=== PATIENT | male | born 1965 | race African-American/Black ===

== ENCOUNTER 2017-06-28 06:11 | Inpatient (IN) | payer BC ==
[~2017-06-28] VITALS: Ht 177.8 cm; Wt 97.5 kg
[2017-06-28] VITALS (17 sets, daily range): BP systolic 110–168; BP diastolic 58–106
[2017-06-28] MEDS ORDERED: LISINOPRIL20 MG ORAL (06:50)
[2017-06-28] MEDS ORDERED: Bupivacaine w/Epi 0.25% 30ml Vial INJ ONE ×2 (06:57→08:56)
[2017-06-28] MEDS ORDERED: Dexamethasone 4mg/ml vial ONE ×2 (06:57→07:00)
[2017-06-28] MEDS ORDERED: Bacitracin 50000 Units Vial ONE ×2 (06:58→07:01)
[2017-06-28] MEDS ORDERED: Ketorolac 30mg Inj ONE ×2 (06:58→11:28)
[2017-06-28] MEDS ORDERED: Lidocaine 1% MPF 10mg/ml 5ml ONE (07:00)
[2017-06-28] MEDS ORDERED: Glycopyrrolate 0.2mg/ml 1ml Vial ONE (07:00)
[2017-06-28] MEDS ORDERED: fentaNYL 100 mcg/2 mL IV ONE (07:00)
[2017-06-28] MEDS ORDERED: NS Irrig 1000ml ONE (07:00)
[2017-06-28] MEDS ORDERED: Neostigmine 1mg/ml 10ml Inj ONE (07:00)
[2017-06-28] MEDS ORDERED: LR 1000ml ONE (07:00)
[2017-06-28] MEDS ORDERED: Zemuron 50mg/5ml Inj IV ONE (07:00)
[2017-06-28] MEDS ORDERED: Propofol 10mg/ml 100ml btl IV ONE (07:00)
[2017-06-28] MEDS ORDERED: Sodium Chloride 10ml vial INJ ONE (07:00)
[2017-06-28] MEDS ORDERED: Metoclopramide 10mg/2ml Inj ONE (07:00)
[2017-06-28] MEDS ORDERED: Midazolam 2mg/2ml Inj ONE (07:00)
[2017-06-28] MEDS ORDERED: Propofol 10mg/ml 20ml IV ONE (07:00)
[2017-06-28] MEDS ORDERED: Sterile Water Irrig 1000ml IRRIG ONE (07:00)
[2017-06-28] MEDS ORDERED: NS Irrig 1000ml IRRIG ONE (07:01)
--- NOTE | 2017-06-28 07:03 | Pre-Procedure Note/Attestation ---
Pre-Procedure Note/Attestation Complete Prior to Procedure Planned Procedure: left Procedure Narrative: Left knee arthroplasty Indications for Procedure Pre-Operative Diagnosis: Left knee arthritis Attestation I attest that I discussed the nature of the procedure; its benefits; risks and complications; and alternatives (and the risks and benefits of such alternatives ), prior to the procedure, with the patient (or the patient's legal u.s. representative). I attest that, if there was a reasonable possibility of needing a blood transfusion, the patient (or the patient's legal u.s. representative) was given the [facility] standardized written summary, pursuant to the Ozzy Kyara Blood Safety Act ([place] Health and Safety Code # 1645, as amended). I attest that I re-evaluated the patient just prior to the surgery and that there has been no change in the patient's H&P, except as documented below: LUIS TURNER Jun 28, 2017 07:02
--- NOTE | 2017-06-28 07:10 | Brief Operative Note ---
Immediate Post Operative Note Operative Note Pre-op Diagnosis: Left knee arthritis Procedure: Left knee arthroplasty Post-op Diagnosis: same as pre-op Findings: consistent w/pre-op dx studies Surgeon: Khris Anesthesia: general, regional, local Specimen: yes Complications: none Condition: stable Fluids: Per anesthesia Estimated Blood Loss: minimal Drains: none Implant(s) used?: Yes LUIS TURNER Jun 28, 2017 07:10
[2017-06-28] MEDS ORDERED: Morphine Sulfate PF 10 ML ONE (07:12)
[2017-06-28] MEDS ORDERED: Tranexamic Acid 1,000 MG in NS 55 ML IV ONE (07:15)
[2017-06-28] MEDS ORDERED: Tranexamic Acid 1,000 MG in NS 55 ML IVPB ONE (07:15)
[2017-06-28] MEDS ORDERED: Norco 7.5mg/325mg tab ORAL PRN (07:15)
[2017-06-28] MEDS ORDERED: Milk of Magnesia 30ml Ud ORAL PRN (07:15)
[2017-06-28] MEDS ORDERED: SIMVASTATIN10 MG ORAL (07:17)
[2017-06-28] MEDS ORDERED: METOPROLOL SUCC50 MG ORAL (07:17)
[2017-06-28] MEDS ORDERED: XARELTO15 MG ORAL (07:17)
[2017-06-28] MEDS ORDERED: WARFARIN SODIUM1 MG ORAL (07:17)
[2017-06-28] MEDS ORDERED: Ropivacaine 5mg/ml Vial 20ml INJ ONE (08:54)
[2017-06-28] MEDS ORDERED: Albuterol 90mcg Inhaler 8gm INH ONE (09:40)
--- NOTE | 2017-06-28 10:05 | Diagnostic Imaging Report ---
Indication: Intraoperative Technique: 2 views of the left knee Comparison: None Findings:Intraoperative images demonstrate partial implantation of a knee prosthesis. Good anatomic alignment Impression:Intraoperative imaging, as described
[2017-06-28] MEDS ORDERED: Norco 5mg/325mg tab ORAL PRN (11:00)
[2017-06-28] MEDS ORDERED: Metoclopramide 10mg/2ml Inj IVP PRN ×2 (11:00)
[2017-06-28] MEDS ORDERED: Meperidine 25mg/0.5ml Inj (FOR RIGORS ONLY) IV PRN (11:00)
[2017-06-28] MEDS ORDERED: Hydromorphone 0.5mg/0.5ml inj IVP PRN (11:00)
--- NOTE | 2017-06-28 11:13 | Immediate Post-Op Evaluation ---
Immediate Post-Op Evalulation Immediate Post-Op Evalulation Procedure: left knee replacement Date of Evaluation: Jun 28, 2017 Time of Evaluation: 10:30 IV Fluids: 500 Blood Products: 0 Estimated Blood Loss: 10 Blood Pressure Systolic: 130 Blood Pressure Diastolic: 70 Pulse Rate: 100 Respiratory Rate: 12 O2 Sat by Pulse Oximetry: 100 Temperature (Fahrenheit): 98.0 Nausea: No Vomiting: No Complications none Patient Status: awake, reacts Hydration Status: adequate Drug: ancef Given Within 1 Hr of Incision: Yes Time Given: 07:50 MISSAEL RAMOS CRNA Jun 28, 2017 11:13
--- NOTE | 2017-06-28 11:19 | Anethesia Preoperative Eval ---
Anesthesia Pre-op PMH/ROS General Date of Evaluation: Jun 28, 2017 Time of Evaluation: 07:33 Anesthesiologist: isis ASA Score: ASA 3 Mallampati Score Class I : Soft palate, uvula, fauces, pillars visible Class II: Soft palate, uvula, fauces visible Class III: Soft palate, base of uvula visible Class IV: Only hard plate visible Mallampati Classification: Class III Surgeon: aida Diagnosis: OA Surgical Procedure: LEFT Knee Athroplasty Anesthesia History: none Social History: current smoker Family History: no anesthesia problems Allergies: Coded Allergies: No Known Allergies (Unverified , 06/28/17) Medications: see eMAR Past Medical History Cardiovascular: Reports: HTN, other - PFO Pulmonary: Reports: NICHOLAS, other - smoker Gastrointestinal/Genitourinary: Denies: GERD, CRI, ESRD, other Neurologic/Psychiatric: Reports: CVA - on blood thinner/ inr 1.6 on 06/26, depression/anxiety HEENT: Denies: cataract (L), cataract (R), glaucoma, [place]ANDY (L), [place]Y (R), other Hematology/Immune: Denies: anemia, DVT, bleeding disorder, other Musculoskeletal/Integumentary: Reports: OA Other: obesity PMH Narrative: pt with HTN ; CVA in 2013 on xeralto and coumadin bridging PSxH Narrative: multiple knee surgeries Anesthesia Pre-op Phys. Exam Physician Exam Last Vital Signs Date Time Temp Pulse Resp B/P (MAP) Pulse Ox O2 Delivery O2 Flow Rate FiO2 06/28/17 10:45 109 18 135/84 92 Simple Mask 10.0 06/28/17 10:20 98.9 Constitutional: NAD Neurologic: CN 2-12 intact Cardiovascular: RRR Respiratory: CTA Gastrointestinal: S/NT/ND Airway Exam Mallampati Classification 3 Mallampati Score: Class III MO: full Neck: thick TMD: 2fb Dentures: no upper, no lower Anesthesia Pre-op A/P Labs INR 1.6 on 06/26 ; other labs wnl Studies Pre-op Studies: EKG - sr Risk Assessment & Plan Assessment: denies cp/sob Plan: general / Will perform one short peripheral nerve block if anatomy can be id'd with u/s Status Change Before Surgery: No Pre-Antibiotics Drug: ancef Given Within 1 Hr of Incision: Yes Time Given: 07:50 MISSAEL RAMOS CRNA Jun 28, 2017 11:18
[2017-06-28] MEDS ORDERED: Ketorolac 30mg Inj IV PRN (11:30)
--- NOTE | 2017-06-28 11:36 | Diagnostic Imaging Report ---
Indication: POST-OP Technique: 2 views of the right knee Comparison: 2 hours earlier Findings: Interim completion of placement of left knee arthroplasty prosthesis. Satisfactory anatomic alignment. Is evidence of prior anterior cruciate ligament repair, with surgical hardware from that in place. Retained air from the surgical wound is seen within the soft tissues and joint. Impression: Postoperative left knee no unusual features
--- NOTE | 2017-06-28 11:37 | 48 Hour Post Anesthesia Eval ---
Post Anesthesia Evaluation Procedure: left knee replacement Date of Evaluation: Jun 28, 2017 Time of Evaluation: 11:37 Blood Pressure Systolic: 135 0: 70 Pulse Rate: 100 Respiratory Rate: 14 O2 Sat by Pulse Oximetry: 95 Airway: patent Nausea: No Vomiting: No Hydration Status: adequate Cardiopulmonary Status: stable Mental Status/LOC: patient returned to baseline Post-Anesthesia Complications: none Follow-up care needed: N/A MISSAEL RAMOS CRNA Jun 28, 2017 11:37
[2017-06-28] MEDS ORDERED: DiphenhydrAMINE 50mg/ml Inj IVP PRN (11:45)
[2017-06-28] MEDS ORDERED: Morphine Sulfate 4mg/ml Inj IVP PRN (13:22)
[2017-06-28] MEDS ORDERED: HYDROmorphone 1mg/ml Carpuject SUBQ PRN (13:22)
[2017-06-28] MEDS ORDERED: Morphine Sulfate 2mg/ml Inj IVP PRN (13:23)
[2017-06-28] MEDS ORDERED: oxyCODONE 5mg IR tab ORAL PRN (13:25)
[2017-06-28] MEDS: D5 1/2NS w/KCl 20mEq 1,000 ML IV SCH (13:43)
[2017-06-28 14:30] LABS: INR 1.1 (0.9-1.1)
--- NOTE | 2017-06-28 15:13 | Consultation ---
Consult Note Assessment/Plan dict s/p L TKA OA s/p CVA PFO resume coumadin SAL PERALTA Jun 28, 2017 15:13
[2017-06-28] MEDS: ceFAZolin 2gm/50ml Premix 50 ML IV SCH (15:40)
[2017-06-28] MEDS ORDERED: ceFAZolin sod 2 GM in D5W 110 ML IV SCH (16:00)
[2017-06-28] MEDS ORDERED: Warfarin Sodium 5mg ORAL SCH (17:00)
[2017-06-28] MEDS: Docusate 100mg cap ORAL SCH (17:17)
[2017-06-28] MEDS: oxyCONTIN 20mg tab ORAL SCH (20:17)
[2017-06-29] MEDS: ceFAZolin 2gm/50ml Premix 50 ML IV SCH
--- NOTE | 2017-06-29 00:31 | Consultation ---
DATE OF CONSULTATION: 06/28/2017 INTERNAL MEDICINE CONSULTATION CONSULTING PHYSICIAN: Tony Mccurdy M.D. HISTORY OF PRESENT ILLNESS: The patient is a 51-year-old man, who came today for elective left knee replacement for osteoarthritis. He had several prior knee arthroscopic procedures, which were not successful. He had surgery today that was uneventful and I was asked to see him for medical management following surgery. PAST MEDICAL HISTORY: The patient has a history of left ventricular thrombus and patent foramen ovale and stroke in October 2013. He had transient loss of vision, but this has improved, but no other neurologic signs. He has been on anticoagulants since that time with no recurrence. He has a history of hypertension, right ankle surgery and several left knee operations. He has hyperlipidemia. MEDICATIONS: Xarelto, lisinopril, metoprolol, Zocor, and Tylenol. He has been off the anticoagulants for surgery. ALLERGIES: None. SOCIAL HISTORY: He does not drink excessively. He smoked up until this admission. 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 REVIEW OF SYSTEMS: Otherwise unremarkable. PHYSICAL EXAMINATION: GENERAL: The patient is alert and responds appropriately. He is overweight. VITAL SIGNS: Show blood pressure is 113/74, but was as high as 168/106 earlier. He is not in pain. The other vital signs are normal. The heart rate is somewhat elevated. SKIN: Warm and dry. HEENT: The head is normocephalic. NECK: No jugular venous distention. CHEST: Clear. CARDIAC: Rhythm is regular. Regular tachycardia. ABDOMEN: Soft and nontender. EXTREMITIES: No clubbing, cyanosis, or edema. The left knee has a surgical dressing in place. IMPRESSION: 1. Status post left knee replacement for osteoarthritis. 2. History of left ventricular thrombus and stroke, presently off anticoagulants. 3. Hypertension. 4. Hyperlipidemia. PLAN: The patient will be followed following surgery. He has been restarted on Coumadin. I will be happy to continue to assist in his perioperative management. Tony Mccurdy M.D. DR: Don JOB#: [id number] CC: Jatin Pinedo M.D. ([facility] [place]); Fax#: [phone] Soffer, M.D. ; Fax#: [phone]
[2017-06-29 00:52] VITALS: BP 114/81
--- NOTE | 2017-06-29 01:15 | Operative Note - Dictated ---
DATE OF OPERATION: 06/28/2017 SURGEON: Jatin Pinedo M.D. BUNDLE TIER AND LABELER: None. ANESTHESIA: General plus local plus regional. COMPLICATIONS: None. ANTIBIOTICS: Ancef. PREOPERATIVE DIAGNOSIS: Left knee arthritis. POSTOPERATIVE DIAGNOSIS: Left knee arthritis. PROCEDURE PERFORMED: Left total knee arthroplasty using Rory persona cemented cruciate retaining size 10 femur, Rory persona cemented natural tibia 5-degree stemmed size G, cemented 32 x 8.5 mm all-polyethylene patella, and a 13 mm ultracongruent persona articular fixed bearing surface. 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 All risks, benefits, and alternatives of surgical intervention were discussed in great detail. Risks included, but were not limited to, bleeding, infection, neurovascular injury, need for additional surgical intervention, failure of pain relief, arthrofibrosis, complications of anesthesia, blood clots, stroke, heart attack, and potentially . He understood these risks, amongst others, and consent was signed. PROCEDURE IN DETAIL: The patient was brought into the operating room and placed supine on the operating room table. The left knee was correctly verified for surgical site and prepped and draped in standard sterile fashion. A midline incision was created utilizing a previous anterior cruciate ligament reconstruction scar anteriorly. An Esmarch bandage was used to exsanguinate the limb prior to incision and the tourniquet was insufflated to 275 mmHg above the atmospheric pressure for a period of 95 minutes. The medial parapatellar arthrotomy was performed and the infrapatellar and suprapatellar fat pads were resected. The remnant menisci were removed. There was prolapsed [id number] arthritis medially and in the patellofemoral articulation. An intramedullary guide was used in the femur to cut a 5-degree distal valgus osteotomy. It measured to a size 10 to avoid notching and all five bone cuts were created in the femur. Attention was then turned to the tibia. Using extramedullary guidance and preoperative templating, the proximal tibia was resected of bone. After appropriate soft tissue balancing and osteophyte resection, both flexion and extension gaps were symmetric. The patella was everted and resected of 8.5 mm bone and measured to a size 32. The appropriate lug holes were created to accept the implant. Trial reduction using a 32 patella, G tibia, 10 femur, and 13 mm insert revealed extension to 0 degrees, no mediolateral laxity, neutral alignment, excellent patellar thumbs off tracking, and flexion to 150 degrees. Drill holes were created in the femur to accept the real implant. Punctate holes were created in the sclerotic medial aspect of the tibial plateau to accept the interdigitation of the cement. Pulsatile lavage was used to cleanse all the bone ends and they were then thoroughly dried. The real components were cemented into position. There was no change in final range of motion, stability, patellar tracking, or alignment. The surrounding tissues were copiously irrigated and injected with 40 mL of 0.25% Marcaine with epinephrine mixed with Toradol and Decadron. Finger sweep revealed no retained foreign body or debris. Pulsatile lavage was used throughout the wound and the extensor mechanism was reapproximated using #1 Vicryl and more superficial tissues with #0 and 2-0 Vicryl. Prior to implantation, radiographs confirmed appropriate bone resection and hardware placement. Monocryl was used in a subcuticular fashion for skin closure. Steri-Strips were used over Mastisol. Dry sterile dressing was applied. A compressive stocking was fitted. There were no complications. I attest that I performed the entire operation. He was then transferred to recovery in good condition. Jatin Pinedo M.D. DR: Ammon JOB#: [id number] CC:
[2017-06-29] MEDS: D5 1/2NS w/KCl 20mEq 1,000 ML IV SCH (02:54)
[2017-06-29 04:47] VITALS: BP 107/77
--- NOTE | 2017-06-29 06:55 | Orthopedic Progress Note ---
Orthopedic - Progress Note Subjective Symptoms: c/o post-op knee pain Additional Comments Was somewhat frustrated by adapting to taking hospital medications, when he was told to bring his own. Only mild left knee pain. Using immobilizer for ambulating Objective Vital Signs Last 24 Hour Vital Signs Date Time Temp Pulse Resp B/P (MAP) Pulse Ox O2 Delivery O2 Flow Rate FiO2 06/29/17 04:47 97.6 117 20 107/77 92 Room Air 06/29/17 00:52 97.4 116 20 114/81 97 Room Air 06/28/17 20:19 98.6 114 20 119/81 93 Room Air 06/28/17 16:50 97.6 108 21 110/70 92 Nasal Cannula 2.0 06/28/17 16:01 98.7 110 20 120/85 97 Nasal Cannula 2.0 06/28/17 14:21 98.6 06/28/17 13:43 98.6 120 20 113/74 94 Nasal Cannula 2.0 06/28/17 12:45 99.1 116 16 147/88 93 Nasal Cannula 3.0 06/28/17 12:30 131 24 168/106 93 Nasal Cannula 3.0 06/28/17 12:20 122 20 158/87 93 Nasal Cannula 3.0 06/28/17 12:11 98.0 114 18 142/78 94 Nasal Cannula 3.0 06/28/17 11:56 98.0 06/28/17 11:56 98.0 06/28/17 11:55 114 18 148/80 94 Nasal Cannula 3.0 06/28/17 11:49 114 18 146/78 94 Nasal Cannula 3.0 06/28/17 11:37 100 14 95 06/28/17 11:34 102 18 124/74 94 Nasal Cannula 3.0 06/28/17 11:13 100 12 100 06/28/17 11:10 106 18 122/75 92 Nasal Cannula 3.0 06/28/17 10:45 109 18 135/84 92 Simple Mask 10.0 06/28/17 10:30 110 18 132/71 92 Simple Mask 10.0 06/28/17 10:25 105 18 125/58 92 Simple Mask 10.0 06/28/17 10:20 98.9 108 18 136/91 92 Simple Mask 10.0 06/28/17 07:06 98.3 94 19 118/83 95 Room Air Wound: clean, dry Drains: none Neuro Status: normal Vascular Status: normal Assessment Procedure Performed Left knee arthroplasty Plan Plan: PT, pain management Additional Comments Would like to see if he can manage going home today. Provided he is safe to go home and his pain is well managed, he can then be discharged. Follow up in 10-14 days. LUIS TURNER Jun 29, 2017 06:55
[2017-06-29 07:03] LABS: PROTHROMBIN TIME 10.7 SEC (9.30-11.50)
[2017-06-29 07:08] LABS: BASOPHILS % (AUTO) 0.5 % (0.0-2.0); LYMPHOCYTES % (AUTO) 9.9 % (20.0-45.0); MEAN CORPUSCULAR HGB CONC 32.7 G/DL (32.0-36.0); MEAN CORPUSCULAR VOLUME 95 FL (80-99); MEAN PLATELET VOLUME 6.2 FL (6.5-10.1); MONOCYTES % (AUTO) 4.9 % (1.0-10.0); NEUTROPHILS % (AUTO) 84.7 % (45.0-75.0); PLATELET COUNT 263 K/UL (150-450); RED BLOOD COUNT 3.99 M/UL (4.70-6.10); RED CELL DISTRIBUTION WIDTH 11.3 % (11.6-14.8); WHITE BLOOD COUNT 12.1 K/UL (4.8-10.8)
[2017-06-29 08:00] VITALS: BP 132/82
[2017-06-29] MEDS: Docusate 100mg cap ORAL SCH (08:19)
[2017-06-29] MEDS: oxyCONTIN 20mg tab ORAL SCH (08:21)
[2017-06-29] MEDS ORDERED: Metoprolol Succinate XL 50mg tab ORAL SCH (09:00)
[2017-06-29] MEDS ORDERED: celeBREX 200mg Cap **SURGERY PATIENTS ONLY ORAL SCH (09:00)
[2017-06-29] MEDS ORDERED: Lisinopril 10mg tab ORAL SCH (09:00)
[2017-06-29] MEDS ORDERED: Tubing IV Secondary IV ONE (12:02)
[2017-06-29 15:39] VITALS: BP 128/71
--- NOTE | 2017-06-29 15:39 | 48 Hour Post Anesthesia Eval ---
Post Anesthesia Evaluation Procedure: left knee replacement Date of Evaluation: Jun 29, 2017 Time of Evaluation: 15:38 Blood Pressure Systolic: 128 0: 71 Pulse Rate: 64 Respiratory Rate: 22 Temperature (Fahrenheit): 97.6 O2 Sat by Pulse Oximetry: 98 Airway: patent Nausea: No Vomiting: No Pain Intensity: 2 Hydration Status: adequate Cardiopulmonary Status: stable Mental Status/LOC: patient returned to baseline Follow-up Care/Observations: n/a Post-Anesthesia Complications: none Follow-up care needed: ready to discharge SHAHEEN PANIAGUA M.D. Jun 29, 2017 15:39
--- NOTE | 2017-07-02 11:23 | Discharge Summary ---
Discharge Summary Hospital Course Date of Admission Jun 28, 2017 at 06:11 Date of Discharge Jun 29, 2017 at 12:03 Admitting Diagnosis left knee osteoarthritis HPI Clayton Alberto is a 51 year old male who was admitted on Jun 28, 2017 at 06:11 for Left Knee Osteoarthritis Consultations dr Mccurdy- IM Procedures s/p 06/28 Left total knee arthroplasty by dr Pinedo [place] [facility] Course s/p surgery course of recovery uneventful pain management, controlled incision with dressing C/D/I PT eval and Rx ambulated with knee immobilizer on neurovascular intact tolerated diet voided freely BP management with BB and ROSALINO, stable continue statin presently off a/coagulation resume Coumadin upon discharge surgeon cleared for discharge fup with surgeon in 10-14 days due to rapid and unexpected improvement in patient condition, the patient was discharged in one day FINAL DIAGNOSIS left knee osteoarthritis s/p Left total knee arthroplasty HTN Hyperlipidemia Hx of CVA Hx of Left ventricular thrombus Discharge Medications Continued Medications: Lisinopril (Lisinopril*) 20 Mg Tablet 10 MG ORAL DAILY, TAB Metoprolol Succinate* (Metoprolol Succinate*) 50 Mg Tab.er.24h 50 MG ORAL DAILY, TAB Simvastatin (Zocor) 10 Mg Tablet 10 MG ORAL BEDTIME, TAB Warfarin Sod* (Warfarin Sod*) 1 Mg Tablet 1.5 MG ORAL DAILY, TAB Discharge Condition Upon Discharge: stable Discharge Disposition Patient was discharged to Home (01) Discharge Diagnoses: Discharge Instructions Discharge Instructions Special Instructions I have been assigned to complete a D/C Summary on this account. I was not involved in the patient management Anabel Cerna NP ([place]) Jul 02, 2017 11:23
== END 2017-06-29 12:03 | disposition home or self-care (01) | DRG 470 ==
LOC: SDSOVERFLO 06:11 → 3E 11:34
PROC: 0SRD0J9 Replacement of Left Knee Joint with Synthetic Substitute, Cemented, Open Approach (ICD-10-PCS; principal; 2017-06-28 07:30)
DX: M17.12 Unilateral primary osteoarthritis, left knee (principal); Q21.1 Atrial septal defect; I10 Essential (primary) hypertension; Z86.73 Personal history of transient ischemic attack (TIA), and cerebral infarction without residual deficits; Z86.718 Personal history of other venous thrombosis and embolism; E78.2 Mixed hyperlipidemia; L23.9 Allergic contact dermatitis, unspecified cause; Z79.01 Long term (current) use of anticoagulants; F17.200 Nicotine dependence, unspecified, uncomplicated
CPT/HCPCS: 36415; 85025; 85610; 86850; 86900; 86901; 87081; 94003; 94150; J2250; J2405; J2710; J2765